=== PATIENT | female | born 1975 | race Caucasian/White ===

== ENCOUNTER 2022-07-31 19:17 | Emergency (ER) | payer OTHER, MEDICAID, SELFPAY ==
[2022-07-31 19:30] VITALS: BP 116/66; PULSE 85; RESP 16; TEMP 37; O2SAT 100
--- NOTE | 2022-07-31 19:30 | ED.BACK ---
HPI - Back Pain/Injury General Chief Complaint: Back Pain/Injury Stated Complaint: Right Lower Back Pain Time Seen by Provider: 07/31/22 19:30 Source: patient and RN notes reviewed Mode of arrival: ambulatory Limitations: no limitations History of Present Illness HPI Narrative: 47-year-old female presents with concern for low back pain. She reports symptoms started on Saturday and have gotten worse over the last several days. She reports the pain is on the right and radiates around to the right abdomen. She denies injury or trauma. She denies abdominal pain, nausea, vomiting. She denies dysuria, frequency. Reports urgency, however reports she has urgency at baseline. She denies fever, aches, chills sweats. Denies perianal anesthesia or loss of bowel or bladder function. Denies weakness in any extremity MD elicited complaint: back pain Related Data Allergies Allergy/AdvReac Type Severity Reaction Status Date / Time Penicillins Allergy Unknown Unknown Verified 07/31/22 19:28 PCN Allergy Unknown Unknown Uncoded 07/31/22 19:28 Review of Systems Review of Systems: CONSTITUTIONAL: Denies malaise, chills, sweats, or fever. CARDIOVASCULAR: Denies chest pain, palpitations, or edema. RESPIRATORY: Denies cough or dyspnea. GASTROINTESTINAL: Denies abdominal pain, nausea, vomiting, diarrhea, loss of bowel function GENITOURINARY: Denies dysuria, hematuria, frequency, loss of bladder function. SKIN: Denies rash or itching. MUSCULOSKELETAL: Reports right low back pain that radiates around the abdomen NEUROLOGIC: Denies numbness, weakness, or headache. All systems reviewed & are unremarkable except as noted in HPI and below PMFSH Family History Family History (Updated 10/08/13 @ 07:13 by DOCTOR UNKNOWN) Sibling Family history of migraine headaches Social History Social History Alcohol intake: current Comments At time of signature, agree with nursing past medical, surgical, social and family history. There is no relevant family history pertinent to the presenting complaint Exam Narrative: GENERAL: Well-appearing, well-nourished, and in no acute distress. HEAD: Normocephalic, atraumatic. EYES: PERRLA and EOMI. NECK: Supple. No lymphadenopathy. CHEST: Clear to auscultation. No respiratory distress. HEART: Regular rate and rhythm. Distal pulses palpable and equal, cap refill <3 seconds ABDOMEN: Soft, nontender, nondistended, normal active bowel sounds, no palpable or pulsatile masses. Right cVA tenderness MUSCULOSKELETAL: Normal range of motion and strength in all extremities; 5/5 strength with hip flexion and extension, dorsiflexion and extension, knee flexion and extension, plantar flexion and extension. Normal sensation in dermatomal distributions with sensitivity to light touch and pain. No midline back tenderness to palpation. Right low paraspinal tenderness. Transfers from to sitting to standing. SKIN: Warm, dry, no rash. No ecchymosis, erythema, open wounds to back. NEURO: No focal deficits. Alert and oriented x3. Reflexes intact. Normal gait. PSYCH: Normal mood and affect Course Course Emergency Course: Patient is aware of diagnosis, understands and agrees to treatment plan. Anticipatory guidance given. Patient agrees to follow-up as directed and is aware of reasons to seek care at the emergency department. Portions of this record may have been created with voice recognition software Level of Care: Express Care Visit Vital Signs Vital signs: Reviewed. MDM - Back Pain/Injury MDM Narrative Medical decision making narrative: No risk factors or findings concerning for epidural abscess, diskitis, vertebral osteomyelitis, cord compression, cauda equina, vertebral fracture or bone malignancy, AAA, or pyelonephritis. Patient instructed to consider further imaging and workup through their primary care physician as an outpatient if symptoms persist. Differential Diagnosis Differential diagnosis: Likely lum
[2022-07-31 19:38] VITALS: BP 116/66; PULSE 85; RESP 16; TEMP 37; O2SAT 100
== END 2022-07-31 20:01 | disposition home or self-care (01) ==
PROVIDERS: Emergency Provider Nurse Practitioner; PCP Internal Medicine
DX: M54.50 Low back pain, unspecified (principal); R10.9 Unspecified abdominal pain
CPT/HCPCS: 81003; 87077; 87086; 87186; 99213; G0463

== ENCOUNTER 2023-04-26 21:03 | Emergency (ER) | payer OTHER, SELFPAY ==
--- NOTE | ~2023-04-26 | XR_ITS ---
XR chest 1V portable INDICATION: Cough. TECHNIQUE: 2 view chest. FINDINGS: Comparison to 10/27/2012. There is mild bilateral interstitial prominence and peribronchial cuffing. There is no focal consoli dation, pleural effusion, or pneumothorax. The cardiomediastinal silhouette is normal. IMPRESSION: 1. Interstitial prominence with peribronchial cuffing. Considerations include mild interstitial edema , bronchiolitis and atypical pneumonia.. Reviewed, dictated and finalized at location A. IMPRESSION: 1. Interstitial prominence with peribronchial cuffing. Considerations include m ild interstitial edema, bronchiolitis and atypical pneumonia..
[2023-04-26 21:16] VITALS: BP 118/81; PULSE 84; RESP 16; TEMP 36.4; O2SAT 99
[2023-04-26 21:44] LABS: Appearance Urine Clear (Clear); Bacteria Urine None Seen /hpf; Bilirubin Urine Negative (Negative); Blood Urine 1+ (Negative); Color Urine Yellow (Yellow); Glucose Urine UA Negative (Negative); Ketones Urine Negative (Negative); Leukocyte Esterase Ur 1+ LEU/UL (Negative); Nitrate Urine Negative (Negative); Non Pathogenic Casts 0-2; Protein Urine Negative (Negative); Specific Grav Ur 1.027 (1.001-1.035); Squamous Epithelial Cell Urine Occasional /hpf (Few); WBC Urine 21-50 /hpf (0-3)
[2023-04-26 21:50] LABS: Add Urine Microscopic? YES
--- NOTE | 2023-04-26 22:26 | ECG_ITS ---
Measurements Intervals [place] Rate: 87 P: 79 [place]: 157 QRS: 56 QRSD: 90 T: 60 QT: 378 QTc: 457 Interpretive Statements SINUS RHYTHM BASELINE WANDER- I, V4, V6 NORMAL ECG NO PREVIOUS ECG AVAILABLE FOR COMPARISON Electronically Signed On 04-27-2023 7:50:20 CDT by Imer Holm D.O.
[2023-04-26 22:39] VITALS: PULSE 92; O2SAT 100
[2023-04-26 22:40] VITALS: BP 146/86; PULSE 81; RESP 17; O2SAT 100
[2023-04-26 22:50] LABS: Basophils Percent Auto 0.4 % (0.2-1.2); Eosinophils Absolute Auto 0.2 K/mm3 (0-0.3); Eosinophils Percent Auto 2.5 % (0-4.4); Hematocrit 45.8 % (37.0-47.0); Hemoglobin 14.5 g/dL (12.0-15.0); Immature Granulocyte Absolute 0.02 K/mm3 (0.00-0.031); Immature Granulocyte Percent A 0.3 % (0-0.5); Lymphocytes Absolute Auto 2.29 K/mm3 (0.9-3.2); Lymphocytes Percent Auto 31.5 % (18.3-44.2); Mean Corpuscular HGB Conc 31.7 g/dl (32-36); Mean Corpuscular Hemoglobin 29.5 pg (26-34); Mean Corpuscular Volume 93.3 fl (80-100); Mean Platelet Volume 9.1 fl (7.4-10.4); Monocytes Absolute Auto 0.5 K/mm3 (0.1-0.6); Monocytes Percent Auto 6.3 % (2.6-8.5); Neutrophils Absolute Auto 4.3 K/mm3 (1.3-6.7); Platelet Count Result 264 k/mm3 (150-375); Red Blood Count 4.91 M/mm3 (4.2-5.4); Red Cell Distribution Width 14.3 % (11.5-14.5); White Blood Count 7.3 K/mm3 (4.5-10.0)
[2023-04-26 23:00] VITALS: BP 115/65; PULSE 70; RESP 12; O2SAT 100
[2023-04-26 23:00] LABS: Alanine Aminotransferase 24 U/L (6-35); Albumin Level 4.4 g/dL (3.5-5.1); Alkaline Phosphatase 97 U/L (38-126); Anion Gap 8 mmol/L (8-16); Aspartate Amino Transferase 21 U/L (14-36); Bilirubin,Total 0.4 mg/dL (0.2-1.3); Blood Urea Nitrogen 12 mg/dL (7-17); Calcium 9.1 mg/dL (8.4-10.2); Carbon Dioxide 25 mmol/L (22-30); Chloride 106 mmol/L (98-107); Estimated CRCL calculation 104 ml/min; Estimated Glomerular Filt Rate > 60; Glucose 116 mg/dL (65-110); Potassium 3.5 mmol/L (3.4-5.0); Sodium 139 mmol/L (137-145)
[2023-04-26 23:01] LABS: INR 0.9; Prothrombin Time 12.5 Seconds (11.1-14.7)
[2023-04-26 23:02] LABS: Partial Thromboplastin Time 31.3 Seconds (22.3-36.8)
[2023-04-26 23:09] LABS: NT Pro B Type Natriuretic Pept < 20 pg/mL (19.9-100)
[2023-04-26 23:12] LABS: Troponin I < 0.012 ng/mL (0.000-0.034)
[2023-04-26 23:15] LABS: D Dimer 0.32 ug/mL (<0.48)
[2023-04-27] VITALS (9 sets, daily range): BP systolic 98–120; BP diastolic 72–79; PULSE 62–93; RESP 13–21; O2SAT 98–100
--- NOTE | 2023-04-27 01:37 | ECG_ITS ---
Measurements Intervals [place] Rate: 77 P: 76 [place]: 161 QRS: 42 QRSD: 80 T: 53 QT: 386 QTc: 439 Interpretive Statements SINUS RHYTHM NORMAL ECG COMPARED TO ECG 04/26/2023 22:36:25 NO SIGNIFICANT CHANGES Electronically Signed On 04-27-2023 7:55:35 CDT by Imer Holm D.O.
[2023-04-27 02:16] LABS: Troponin I 0.013 ng/mL (0.000-0.034)
--- NOTE | 2023-04-27 03:09 | ED.GENADULT ---
HPI - General Adult General Chief complaint: Unspecified Stated complaint: UTI, R breast/arm pain Time Seen by Provider: 04/26/23 22:18 History of Present Illness HPI narrative: Patient 48-year-old female presents emergency department with chief complaint of urinary tract infection and also right-sided chest pain. Patient states been having pain for about a week reports that the symptoms have not improved by anything patient also reports he has had some dysuria for about a week as well. Related Data Allergies Allergy/AdvReac Type Severity Reaction Status Date / Time Penicillins Allergy Unknown Unknown Verified 04/26/23 21:32 PCN Allergy Unknown Unknown Uncoded 07/31/22 19:28 Review of Systems Review of Systems: A 10 system review of systems was completed on the patient and is negative except for what is stated in the HPI. Nursing and ancillary documentation was reviewed. [facility], [facility] Family History Family History Sibling Family history of migraine headaches Social History Social History Alcohol intake: current Exam Narrative: Differential diagnosis includes ACS, UTI, pulmonary embolism, pneumothorax Laboratory studies were obtained on the patient showed normal CBC BMP was normal D-dimer was negative Chest x-ray showed interstitial prominence. The patient urinalysis showed 21-50 white blood cells the patient was started on cefdinir and Zithromax this will cover both community-acquired pneumonia and also will cover UTI Course Vital Signs Vital signs: Vital Signs Temperature 36.4 C 04/26/23 21:16 Pulse Rate 84 04/26/23 21:16 Respiratory Rate 16 04/26/23 21:16 Blood Pressure 118/81 04/26/23 21:16 Pulse Oximetry 99 04/26/23 21:16 Oxygen Delivery Room Air 04/26/23 21:16 Temperature 36.4 C 04/26/23 21:16 Pulse Rate 72 04/27/23 01:00 Respiratory Rate 13 04/27/23 01:00 Blood Pressure 117/77 04/27/23 01:00 Pulse Oximetry 99 04/27/23 01:00 Oxygen Delivery Room Air 04/26/23 22:39 Medical Decision Making Vital Signs Vital Signs: Vital Signs Temperature 36.4 C 04/26/23 21:16 Pulse Rate 84 04/26/23 21:16 Respiratory Rate 16 04/26/23 21:16 Blood Pressure 118/81 04/26/23 21:16 Pulse Oximetry 99 04/26/23 21:16 Oxygen Delivery Room Air 04/26/23 21:16 Temperature 36.4 C 04/26/23 21:16 Pulse Rate 72 04/27/23 01:00 Respiratory Rate 13 04/27/23 01:00 Blood Pressure 117/77 04/27/23 01:00 Pulse Oximetry 99 04/27/23 01:00 Oxygen Delivery Room Air 04/26/23 22:39 Lab Data 04/26/23 22:42 04/26/23 22:42 Labs: Lab Results 04/26/23 04/26/23 04/27/23 Range/Units 21:29 22:42 01:50 WBC 7.3 (4.5-10.0) K/mm3 RBC 4.91 (4.2-5.4) M/mm3 Hgb 14.5 (12.0-15.0) g/dL Hct 45.8 (37.0-47.0) % MCV 93.3 (80-100) fl MCH 29.5 (26-34) pg MCHC 31.7 L (32-36) g/dl RDW 14.3 (11.5-14.5) % Plt Count 264 (150-375) k/mm3 MPV 9.1 (7.4-10.4) fl Immature Gran % (Auto) 0.3 (0-0.5) % Neut % (Auto) 59.0 (45.5-73.1) % Lymph % (Auto) 31.5 (18.3-44.2) % [place] % (Auto) 6.3 (2.6-8.5) % Eos % (Auto) 2.5 (0-4.4) % Baso % (Auto) 0.4 (0.2-1.2) % Lymph # (Auto) 2.29 (0.9-3.2) K/mm3 [place] # (Auto) 0.5 (0.1-0.6) K/mm3 Eos # (Auto) 0.2 (0-0.3) K/mm3 Baso # (Auto) 0.0 (0.0-0.1) K/mm3 Abs Immat Gran (auto) 0.02 (0.00-0.031) K/mm3 Absolute Neuts (auto) 4.3 (1.3-6.7) K/mm3 Absolute Nucleated RBC 0.000 (0.0-0.012) K/mm3 Nucleated RBC % 0.0 (0.0-0.2) % PT 12.5 (11.1-14.7) Seconds INR 0.9 APTT 31.3 (22.3-36.8) Seconds D-Dimer 0.32 (<0.48) ug/mL Sodium 139 (137-145) mmol/L Potassium 3.5 (3.4-5.0) mmol/L Chloride 106 (98-107) mmol/L Carbon Dioxide 25 (22-30)
== END 2023-04-27 03:26 | disposition home or self-care (01) ==
PROVIDERS: Emergency Provider Emergency Medicine
DX: J18.9 Pneumonia, unspecified organism (principal); N39.0 Urinary tract infection, site not specified; R07.9 Chest pain, unspecified
CPT/HCPCS: 36415; 71045; 80053; 81025; 83880; 84484; 85025; 85380; 85610; 85730; 87086; 87088; 93005; 99284